=== PATIENT | male | born 1990 | race Caucasian/White ===

== ENCOUNTER 2018-01-11 00:14 | Emergency (ER) | payer SELFPAY ==
[~2018-01-11] VITALS: Ht 167.6 cm; Wt 100.0 kg
[2018-01-11 01:55] LABS: ANION GAP 4 mmol/L (8-16); CALCIUM, TOTAL 9.4 mg/dL (8.8-10.5); CARBON DIOXIDE 31 mmol/L (22-29); CHLORIDE 105 mmol/L (98-107); CREATININE 0.94 mg/dL (0.60-1.30); GLOMERULAR FILTR. RATE CALC > 60 mL/min (>60); GLUCOSE,RANDOM 97 mg/dL (70-110); POTASSIUM 4.6 mmol/L (3.5-5.1); SODIUM SERUM 140 mmol/L (136-145); UREA NITROGEN, BLOOD 20 mg/dL (7-18)
[2018-01-11 02:50] VITALS: BP 132/75
== END 2018-01-11 02:57 | disposition home or self-care (01) ==
LOC: EMS 00:16
DX: R06.02 Shortness of breath (principal); R07.9 Chest pain, unspecified
CPT/HCPCS: 85379; 99285